=== PATIENT | male | born 1950 | race Caucasian/White ===

== ENCOUNTER 2016-08-11 07:30 | Day surgery (SDC) ==
[2016-08-10 10:59] LABS: MANUAL DIFF NEEDED? NO
[2016-08-10 11:16] LABS: BASO% 0.3 % (0.0-0.8); EOS# 0.28 X1000 (0.0-0.7); EOS% 3.9 % (0.0-10.0); HEMATOCRIT 45.4 % (42.0-52.0); LYMPH# 1.86 X1000 (1.2-3.4); LYMPH% 25.7 % (20.5-51.1); MCH 31.1 PG (27-31); MONO# 0.64 X1000 (0.11-0.59); MONO% 8.8 % (1.7-9.3); MPV 9.9 FL (7.4-10.4); NEUT% 61.3 % (42.2-75.2); PLT 185 X1000 (130-400); RBC 4.83 XMIL (4.7-6.1)
[2016-08-10 11:18] LABS: INR 1.06; PROTIME 11.2 Seconds (9.2-11.7); PTT 25.9 Seconds (22.0-36.0)
[2016-08-10 12:51] LABS: ALBUMIN 4.6 g/dL (3.5-5.0); CALCIUM 9.2 mg/dL (8.8-10.2); POTASSIUM 4.4 mmol/L (3.5-5.1); TOTAL BILIRUBIN 0.51 mg/dL (0.20-1.00); TOTAL PROTEIN 7.2 g/dL (6.3-8.3)
[~2016-08-11 07:30] MED LIST: MUCOMYST 20% PO ONE; SODIUM BICARBONATE 8.4% 150 MEQ in D5W 1,000 ML IV SCH
[2016-08-11] MEDS ORDERED: HEPARIN 1000 UNITS/NS 1,000 ML ONE (08:30)
[2016-08-11] MEDS ORDERED: VERSED ONE (09:54)
[2016-08-11] MEDS ORDERED: DEMEROL ONE (09:54)
[2016-08-11] MEDS ORDERED: CLAVE ANES SET 100 IN 11965 ONE (09:59)
[2016-08-11] MEDS ORDERED: NS 250 ML ONE (09:59)
--- NOTE | 2016-08-11 10:51 | EKG Report ---
Test Performed on : 08/11/2016 07:35:59 AM Test Reason : OPS 14. Not ordered in [place] Blood Pressure : / mmHG Vent. Rate : 055 BPM Atrial Rate : 055 BPM P-R Int : 190 ms QRS Dur : 140 ms QT Int : 498 ms P-R-T Axes : 055 015 -09 degrees QTc Int : 476 ms Sinus bradycardia. Right bundle branch block T wave abnormality, consider inferolateral ischemia Abnormal ECG No previous ECGs available Confirmed by Ashish Porter DO ([id number]) on 08/11/2016 1:16:28 PM
--- NOTE | 2016-08-11 15:10 | CARDIAC CATH REPORT ---
DATE: 08/11/2016 PROCEDURES: 1. Left heart catheterization. 2. Selective coronary angiogram. 3. Left ventriculogram. HISTORY: [id number]old male patient of Dr. Adriana Loo presented to the office for evaluation of chest pain. Patient underwent myocardial perfusion stress study that showed mild to moderate in severity reversible apical septal defect. A coronary calcium score was calculated at 506. We recommended a heart catheterization to confirm or rule out the presence of severe obstructive coronary disease. Benefits, risks, complications were explained to him in detail. He understood and requested to proceed. DESCRIPTION: Patient was brought to the cardiac catheterization lab in a fasting state. He received 2 mg of Versed, 15 mg of Demerol given in divided doses. Right antecubital fossa was prepped and draped in sterile fashion, anesthetized with lidocaine 1%. A 5-Armenian sheath was inserted into the right brachial artery by following modified Seldinger technique. Using a Metaplace type 2 5-Armenian catheter, we opacified first the left ventricle, thereafter the right coronary artery, and subsequently the left main coronary artery. Multiple views were obtained in several projections. During the procedure, intracoronary nitroglycerin was given. At the end of the procedure, the sheath was flushed. The catheter was removed. Hemostasis was accomplished by hand compression after removing the sheath. SUMMARY OF THE HEMODYNAMIC FINDINGS: 1. Central aortic pressure 115/69, left ventricular pressure 133/16, post left ventriculogram 130/68. 2. Hemodynamics are normal. ANGIOGRAPHIC FINDINGS: 1. Left main coronary artery: This vessel is anatomically normal, divides into LAD and circumflex. 2. Left anterior descending coronary artery: This vessels gives rise to a tiny diagonal branch, thereafter gives rise to septal branches and a large major diagonal branch. Immediately thereafter, the LAD becomes completely occluded. There is a little bit of ipsicollateral flow to what appears to be the distal LAD, which is a very small vessel, less than 1 mm in caliber. 3. Circumflex coronary artery: The circumflex coronary artery is a nondominant vessel. It is normal, gives rise to a small lateral branch, and distally gives rise to a good size posterolateral vessel, which is anatomically normal. 4. Right coronary artery: The right coronary artery is a large dominant vessel. Arises from right coronary sinus of Valsalva in the normal fashion. This vessel gives rise to conus branch and sinus node branch. It shows some mild diffuse disease in the order of 30% in its mid to distal section. Somewhat ectatic. Distally gives rise to posterior descending branch and posterolateral ventricular branch. No significant obstruction noted along the course of the right coronary artery. 5. Collateral circulation: There is collateral circulation coming from the distal portion of the right coronary artery into the apical LAD. LEFT VENTRICULOGRAM: Left ventriculogram in the 30 degree WYMAN projection and 60 degree THAI projection shows good left ventricular systolic function, ejection fraction estimated by computer and visual estimation at 55%. No definite significant wall motion abnormality appears to be present. SUMMARY: In summary, this study showed: 1. Normal left ventricular hemodynamics. 2. Severe one-vessel coronary artery disease with a total occlusion of the mid left anterior descending with some collateral circulation coming from the right system. 3. Mild diffuse disease in the right coronary artery in the order of 30%, normal circumflex, normal left main. 4. Well-preserved left ventricular systolic function, ejection fraction estimated at 55%. No mitral regurgitation. No aortic valve stenosis. RECOMMENDATIONS: Patient will be treated medically. His prognosis is probably good. Because of the mild degree of renal insufficiency noted on his baseline lab work, we used Visipaque during the study and he has been given IV bicarbonate infusion to minimize any potential renal injury. Patient should be discharged later on today with instructions to follow up with us at the office.
[2016-08-11 17:29] VITALS: BP 124/72
== END 2016-08-11 17:31 | disposition home or self-care (01) ==
LOC: OPS 07:30
PROVIDERS: ATTEND Internal Medicine Cardiovascular Disease
DX: I25.10 Atherosclerotic heart disease of native coronary artery without angina pectoris (principal); I25.82 Chronic total occlusion of coronary artery; N28.9 Disorder of kidney and ureter, unspecified; R07.89 Other chest pain; I48.0 Paroxysmal atrial fibrillation; I49.5 Sick sinus syndrome; R94.39 Abnormal result of other cardiovascular function study; R94.31 Abnormal electrocardiogram [ECG] [EKG]; E78.00 Pure hypercholesterolemia, unspecified; I10 Essential (primary) hypertension; E11.9 Type 2 diabetes mellitus without complications; R00.2 Palpitations; N20.0 Calculus of kidney; M19.90 Unspecified osteoarthritis, unspecified site; G47.30 Sleep apnea, unspecified; Z87.11 Personal history of peptic ulcer disease; Z79.899 Other long term (current) drug therapy; Z79.84 Long term (current) use of oral hypoglycemic drugs; Z79.02 Long term (current) use of antithrombotics/antiplatelets; Z79.82 Long term (current) use of aspirin; Z82.49 Family history of ischemic heart disease and other diseases of the circulatory system
CPT/HCPCS: 80053; 85025; 85610; 85730; 93005; 93010; 93458; J1644; J2175; J2250; J7050; J7070; Q9967